=== PATIENT | female | born 1940 | race Caucasian/White ===

== ENCOUNTER → 2018-09-19 | Outpatient (CLI) | payer OTHER ==
[2016-03-16 14:36] VITALS: BP 145/65
[~2018-09-19] MED LIST: CYCL5TAB PO; GADOTERATE 7.5 MMOL/15ML VIAL. IVP ONE; PRED20TA PO
[2018-09-19 13:49] LABS: CREATININE 0.8 mg/dL (0.6-1.0); GFR 69.4
--- NOTE | 2018-09-19 14:47 | RAD ---
MRI Brain with and without contrast History: Seizure Technique: Multiplanar, multi sequential pre and postcontrast MR imaging was performed of the brain. Comparison: None Findings: There is some motion degradation There is no evidence of recent infarct or cytotoxic edema. There is mild generalized supratentorial atrophy, ventricular size proportionate to the sulcal spaces. There is no significant midline shift, intraaxial mass effect, or focal abnormal extra-axial fluid collection. There is some encephalomalacia with cortical involvement of the left temporal lobe, mild associated likely gliosis signified by T2 and FLAIR hyperintense signal. There is no nodular parenchymal or leptomeningeal enhancement. There is preservation of the major intracranial flow-voids at the skull base. The cerebellar tonsils are normal in location. There is no significant abnormality of the pineal gland or pituitary gland. There is very mild ethmoid air cell mucosal thickening, likely more focal small mucous retention cyst of the mid left ethmoid air cell. There has been lens surgery bilaterally. The mastoid air cells are aerated. There is preserved marrow signal of the clivus. Impression: 1. There is no evidence of recent infarct or abnormal intracranial enhancement. 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 There is mild supratentorial atrophy. Electronically signed by: Jim Cardenas MD (09/19/2018 2:44 PM) [id number]
--- NOTE | 2018-09-30 18:29 | EEG ---
DATE OF SERVICE: 09/19/2018 ELECTROENCEPHALOGRAM NUMBER: [id number]. OBJECTIVE: This is a 78-year-old female patient with history of seizure or seizure-like episodes. EEG was requested to evaluate seizure activity. METHODS: Twenty electrodes were applied according to the international 10-20 electrode placement system. EKG monitoring, hyperventilation, intermittent photic stimulation, monopolar and bipolar montages are routinely utilized. The record was obtained on a digital system with video monitoring. FINDINGS: 1. Background: The patient was recorded in the awake, drowsy and sleep states. The overall background amplitude is 10-20 microvolts. A posterior dominant rhythm of 8-10 Hz is observed. 2. Abnormalities: No specific epileptiform discharge or electrographic seizure is seen. No focal or diffuse slowing. 3. Activation: Hyperventilation was performed with good efforts and normal response. Intermittent photic stimulation was performed with photic driving. No specific epileptiform discharge or electrographic seizure induced by hyperventilation or intermittent photic stimulation. IMPRESSION: This electroencephalogram is within the normal limits of the study for the awake, drowsy and sleep states. No focal, lateralizing, specific epileptiform discharge or electrographic seizure is seen. CHERELLE RESENDEZ MD DR: Miguel JOB#: [id number] / [id number] YULIET
== END | disposition home or self-care (01) ==
LOC: RT 10:23
PROVIDERS: ATTEND Psychiatry & Neurology Neurology
DX: G31.89 Other specified degenerative diseases of nervous system (principal); G93.89 Other specified disorders of brain; J34.89 Other specified disorders of nose and nasal sinuses
CPT/HCPCS: 36415; 70553; 82565; 95816; A9575

== ENCOUNTER → 2018-10-23 | Outpatient (CLI) | payer OTHER ==
[2016-03-16 14:36] VITALS: BP 145/65
[~2018-10-23] MED LIST changes: -GADOTERATE 7.5 MMOL/15ML VIAL. IVP ONE
--- NOTE | 2018-10-23 10:49 | CARD ---
MR#: [id number] Date of Study: 10/23/2018 Ordering Physician: TOD LARSEN, Referring Physician: TOD LARSEN, Tech: Merry Medellin [facility] APPROVED REPORT EXAM: Two-dimensional and M-mode echocardiogram with Doppler and color Doppler. Other Information Quality : AverageHR: 66bpm Rhythm : NSR INDICATION Murmur 2D DIMENSIONS Left Atrium(2D)3.0 (1.6-4.0cm)IVSd0.8 (0.7-1.1cm) Aortic Root(2D)3.1 (2.0-3.7cm)LVDd3.9 (3.9-5.9cm) LVOT Diameter2.0 (1.8-2.4cm)PWd0.8 (0.7-1.1cm) LVDs2.4 (2.5-4.0cm)FS (%) 38.0 % SV46.4 mlLVEF(%)68.8 (>50%) M-Mode DIMENSIONS Left Atrium(MM)3.32 (2.5-4.0cm)Aortic Root2.90 (2.2-3.7cm) Aortic Valve AoV Peak Andry.113.7cm/sAoV VTI27.7cm AO Peak GR.5.2mmHgLVOT Peak Andry.102.8cm/s AO Mean GR.3mmHgAVA (VMAX)2.93cm2 ALLI (VTI)2.90cm2 Mitral Valve MV E Jkrrezfp21.1cm/sMV DECEL TNFK653om MV A Soofdqxe648.1cm/sE/A Ratio0.8 MV A Adnztmob333oz Pulmonary Valve PV Peak Uzmrwffr54.8cm/s Pulmonary Vein S1 Yddvledt39.8cm/sD2 Vvyufxqf42.2cm/s LEFT VENTRICLE The left ventricle is normal size. There is normal left ventricular wall thickness. The left ventricu lar systolic function is normal. The Ejection Fraction is 65-70%. There is normal LV segmental wall m otion. Transmitral Doppler flow pattern is Grade I-abnormal relaxation pattern. RIGHT VENTRICLE The right ventricle is normal size. There is normal right ventricular wall thickness. The right ventr icular systolic function is normal. ATRIA The left atrium size is normal. The right atrium size is normal. The interatrial septum is intact wit h no evidence for an atrial septal defect or patent foramen ovale as noted on 2-D or Doppler imaging. AORTIC VALVE The aortic valve is thickened but opens well. The aortic valve is trileaflet. Doppler and Color Flow revealed no significant aortic regurgitation. There is no significant aortic valvular stenosis. There is no aortic valvular vegetation. MITRAL VALVE The mitral valve is normal in structure and function. There is no evidence of mitral valve prolapse. There is no mitral valve stenosis. Doppler and Color Flow revealed no mitral valve regurgitation note d. TRICUSPID VALVE The tricuspid valve is normal in structure and function. Doppler and Color Flow revealed no tricuspid valve regurgitation noted. There is no tricuspid valve prolapse or vegetation. There is no tricuspid valve stenosis. PULMONIC VALVE The pulmonic valve is not well visualized. GREAT VESSELS The aortic root is normal in size. The ascending aorta is normal in size. The IVC is normal in size a nd collapses >50% with inspiration. PERICARDIAL EFFUSION There is no evidence of significant pericardial effusion. Critical Notification Critical Value: No <Conclusion> The left ventricular systolic function is normal. The Ejection Fraction is 65-70%. There is normal LV segmental wall motion. Transmitral Doppler flow pattern is Grade I-abnormal relaxation pattern. No significant valvular abnormalities. There is no evidence of significant pericardial effusion. Signed by : Kendall Kaur, Electronically Approved : 10/23/2018 10:49:13
== END | disposition home or self-care (01) ==
LOC: ECHO 09:24
PROVIDERS: ATTEND Internal Medicine Cardiovascular Disease
DX: R00.8 Other abnormalities of heart beat (principal)
CPT/HCPCS: 93306